=== PATIENT | male | born 1940 | race Caucasian/White ===

== ENCOUNTER 2017-08-12 09:40 | Emergency (ER) | payer MEDICARE, BC ==
[~2017-08-12] VITALS: Ht 190.5 cm; Wt 83.9 kg
[~2017-08-12 09:40] MED LIST: TYLENOL PO
--- NOTE | 2017-08-12 12:23 | NUR ---
Patient discharged to home in stable conditon. Written and verbal after care instructions given. Patient verbalizes understanding of instructions.
== END 2017-08-12 12:24 | disposition home or self-care (01) ==
LOC: ER 09:40
DX: S20.219A Contusion of unspecified front wall of thorax, initial encounter (principal); J45.909 Unspecified asthma, uncomplicated; Z90.49 Acquired absence of other specified parts of digestive tract; W01.0XXA Fall on same level from slipping, tripping and stumbling without subsequent striking against object, initial encounter; Y93.K1 Activity, walking an animal; Y92.89 Other specified places as the place of occurrence of the external cause; Y99.8 Other external cause status
CPT/HCPCS: 71101; A4663